=== PATIENT | male | born 1990 | race Caucasian/White ===

== ENCOUNTER 2018-10-07 08:55 | Outpatient (RCR) | payer OTHER ==
[~2018-10-07 08:55] MED LIST: NO HOME MEDICATIONS; NORCO 325 MG-51 TAB PO
== END 2018-11-10 10:31 | disposition home or self-care (01) ==
LOC: WSOH 08:55
DX: S63.502A Unspecified sprain of left wrist, initial encounter (principal); S60.212A Contusion of left wrist, initial encounter; M25.522 Pain in left elbow; W11.XXXA Fall on and from ladder, initial encounter; Y93.H3 Activity, building and construction; Y92.9 Unspecified place or not applicable; Y99.0 Civilian activity done for income or pay